=== PATIENT | female | born 1970 | race Two or more races ===

== ENCOUNTER 2019-01-23 15:14 | Emergency (ER) | payer OTHER ==
[~2019-01-23] VITALS: Ht 157.5 cm; Wt 83.9 kg
[2019-01-23 15:35] VITALS: BP_SYST 120
== END 2019-01-23 18:03 | disposition home or self-care (01) ==
LOC: SED 15:14
DX: S05.02XA Injury of conjunctiva and corneal abrasion without foreign body, left eye, initial encounter (principal); W22.8XXA Striking against or struck by other objects, initial encounter; Y93.89 Activity, other specified; Y92.89 Other specified places as the place of occurrence of the external cause; Y99.8 Other external cause status
CPT/HCPCS: 99282; 99283

== ENCOUNTER 2022-10-04 00:08 | Emergency (ER) | payer BC, OTHER ==
[~2022-10-04] VITALS: Ht 162.6 cm; Wt 79.8 kg
[2022-10-04 00:37] VITALS: BP_SYST 124
[2022-10-04 01:44] LABS: BASOPHILS % (AUTO) 1.1 % (0.0-2.0); EOSINOPHILS # (AUTO) 0.1 K/uL (0.0-0.4); EOSINOPHILS % (AUTO) 3.4 % (0.0-4.0); HEMATOCRIT 32.7 % (36-48); LYMPHOCYTES # (AUTO) 1.5 K/uL (1.0-5.5); LYMPHOCYTES % (AUTO) 42.5 % (20.5-51.5); MEAN CORPUSCULAR HEMOGLOBIN 27 pg (27-31); MEAN CORPUSCULAR HGB CONC 34 % (32-36); MEAN CORPUSCULAR VOLUME 82 fL (79.0-98.0); MONOCYTES # (AUTO) 0.4 K/uL (0.0-1.0); MONOCYTES % (AUTO) 11.1 % (1.7-9.3); NEUTROPHILS # (AUTO) 1.5 K/uL (1.8-7.7); NEUTROPHILS % (AUTO) 41.9 % (40.0-70.0); PLATELET COUNT (AUTO) 264 K/uL (130-430); RED BLOOD CELL COUNT(AUTO) 3.99 MIL/uL (4.2-6.2); WHITE BLOOD COUNT (AUTO) 3.6 K/uL (4.8-10.8)
[2022-10-04 01:58] LABS: CALCIUM 8.7 mg/dL (8.4-11.0); CREATININE 0.75 mg/dL (0.55-1.30)
[2022-10-04 02:09] LABS: ALBUMIN 3.8 g/dL (3.4-4.8); TOTAL BILIRUBIN 0.3 mg/dL (0.0-1.0)
[2022-10-04] MEDS ORDERED: TRAN650T5 PO (04:35)
[2022-10-04] MEDS ORDERED: NAPR-686 PO (04:35)
[2022-10-04 04:58] VITALS: BP_SYST 124
== END 2022-10-04 04:58 | disposition home or self-care (01) ==
LOC: SED 00:08
DX: N93.8 Other specified abnormal uterine and vaginal bleeding (principal)
CPT/HCPCS: 36415; 80053; 84702; 85025; 86886; 86900; 86901; 99283